=== PATIENT | male | born 1940 | race Caucasian/White ===

== ENCOUNTER → 2018-02-13 | Outpatient (CLI) | payer OTHER ==
[~2018-02-13] MED LIST: AMARYL4 MG PO; ASPIR 8181 M1 PO; AVAPRO300 MG PO; CRESTOR5 MG PO; FLOMAX0.4 MG PO; GLUCOPHAGE1000 MG PO; INVOKANA300 MG PO; MICROZIDE12.5 M1 PO; NORVASC10 MG PO; TOPROL XL200 MG PO; VITAMIN B12 PO; VITAMIN C PO; VITAMIN D3 PO
== END | disposition home or self-care (01) ==
LOC: CDC 10:39
DX: Z01.810 Encounter for preprocedural cardiovascular examination (principal); I10 Essential (primary) hypertension; E11.9 Type 2 diabetes mellitus without complications; Z79.899 Other long term (current) drug therapy; R94.31 Abnormal electrocardiogram [ECG] [EKG]
CPT/HCPCS: 93000

== ENCOUNTER 2018-02-16 07:20 | Day surgery (SDC) | payer OTHER ==
[~2018-02-16] VITALS: Ht 172.7 cm; Wt 79.4 kg
[2018-02-16 08:08] VITALS: BP 127/63
[2018-02-16 11:04] VITALS: BP 165/72
== END 2018-02-16 11:30 | disposition home or self-care (01) ==
LOC: SDC 07:20
PROVIDERS: Urology
DX: N13.5 Crossing vessel and stricture of ureter without hydronephrosis (principal); N40.1 Benign prostatic hyperplasia with lower urinary tract symptoms; R39.11 Hesitancy of micturition; R22.9 Localized swelling, mass and lump, unspecified; I10 Essential (primary) hypertension; E11.9 Type 2 diabetes mellitus without complications; I25.10 Atherosclerotic heart disease of native coronary artery without angina pectoris; E78.01 Familial hypercholesterolemia; Z79.82 Long term (current) use of aspirin
CPT/HCPCS: 82948; C2625; J0131; J0330; J0690; J1100; J2405; J3010